=== PATIENT | male | born 1985 | race Caucasian/White ===

== ENCOUNTER 2022-01-25 19:12 | Emergency (ER) | payer OTHER, SELFPAY ==
[2022-01-25 19:22] VITALS: BP 123/77; PULSE 115; RESP 18; TEMP 38.2; O2SAT 95
[2022-01-25 19:30] VITALS: PULSE 96
--- NOTE | 2022-01-25 19:43 | ED.URI ---
HPI - URI/Sore Throat General Chief Complaint: Upper Respiratory Infection Stated Complaint: Fever/Nausea/Diarrhea/Cough Time Seen by Provider: 01/25/22 19:43 Source: patient Mode of arrival: ambulatory Limitations: no limitations History of Present Illness HPI Narrative: 36-year-old male presents with complaint of congestion, cough, fatigue, low-grade fever, diarrhea and nausea. Symptoms for 4 to 5 days. Has missed several days of work and needs work note. Taking Tylenol and ibuprofen to treat symptoms. Drinking Pedialyte to prevent dehydration. All systems reviewed and negative except as noted above. Related Data Home Medications Medication Instructions Recorded Confirmed No Home Medications 01/25/22 01/25/22 Allergies Allergy/AdvReac Type Severity Reaction Status Date / Time No Known Allergies Allergy Unknown Unverified 01/25/22 19:56 Review of Systems Review of Systems: CONSTITUTIONAL: Denies fever, chills, or sweats. EYES: Denies visual changes, redness, or discharge. ENT: Reports rhinorrhea, congestion. Denies sore throat, or otalgia. CARDIOVASCULAR: Denies chest pain, palpitations, or edema. RESPIRATORY: Reports cough. Denies dyspnea. GASTROINTESTINAL: Denies abdominal pain, nausea, vomiting, or diarrhea. GENITOURINARY: Denies dysuria or hematuria. SKIN: Denies rash or itching. MUSCULOSKELETAL: Denies back pain, joint pain. Reports myalgia. NEUROLOGIC: Denies headache, numbness, or weakness. PSYCHIATRIC: Denies anxiety or depression. All other systems reviewed are negative, except as documented in HPI. PMFSH Comments Reviewed Exam Narrative: GENERAL: This is a well-nourished, well-developed patient, in no apparent distress. HEAD: normocephalic, atraumatic. EYES: PERRL. Sclera clear/white. Vision is grossly intact. EARS: External ears normal, auditory canals clear and without drainage, TMs normal without perforation. Hearing grossly intact. NOSE: External nose normal with clear nasal drainage, moderate congestion. THROAT: Mucous membranes moist, erythema to posterior pharynx with clear nasal drainage. NECK: Neck supple, non-tender without lymphadenopathy, masses or thyromegaly. CARDIOVASCULAR: Regular rate and rhythm without murmurs, gallops, or rubs. RESPIRATORY: Clear to auscultation. Breath sounds equal bilaterally. No wheezes, rales, or rhonchi. SKIN: warm, Dry, intact with no suspicious lesions or rash, good texture and turgor. NEURO: awake, alert, and oriented to person, place and time. There were no obvious focal neurologic abnormalities. EXTREMITIES: Normal range of motion. Course Course Level of Care: Express Care Visit Vital Signs Vital signs: Vital Signs Temperature 38.2 C H 01/25/22 19:22 Pulse Rate 115 H 01/25/22 19:22 Respiratory Rate 18 01/25/22 19:22 Blood Pressure 123/77 01/25/22 19:22 Pulse Oximetry 95 01/25/22 19:22 Temperature 38.2 C H 01/25/22 19:22 Pulse Rate 115 H 01/25/22 19:22 Respiratory Rate 18 01/25/22 19:22 Blood Pressure 123/77 01/25/22 19:22 Pulse Oximetry 95 01/25/22 19:22 MDM - URI/Sore Throat MDM Narrative Medical decision making narrative: Patient is aware of diagnosis, understands and agrees to treatment plan. Anticipatory guidance given. Patient agrees to follow-up as directed and is aware of reasons to seek care at the emergency department. Portions of this record may have been created with voice recognition software Differential Diagnosis Differential diagnosis: Likely upper respiratory infection, sinusitis, viral infection, influenza and pharyngitis Discharge Plan Discharge Clinical Impression: Viral upper respiratory infection Patient Disposition: Home, Self-Care Condition: Stable Instructions: Antibiotic Form, Upper Respiratory Infection (ED) Additional Instructions: Your influenza and Covid test were negative today. Take an [id number] medication, such as DayQuil NyQuil cold and flu, as
== END 2022-01-25 20:05 | disposition home or self-care (01) ==
PROVIDERS: Emergency Provider Nurse Practitioner Family
DX: J06.9 Acute upper respiratory infection, unspecified (principal); Z20.822 Contact with and (suspected) exposure to COVID-19
CPT/HCPCS: 87426; 87804; 99213; C9803; G0463

== ENCOUNTER 2025-03-12 14:55 | Emergency (ER) | payer OTHER, SELFPAY ==
--- NOTE | ~2025-03-12 | XR_ITS ---
XR chest 2V Ordering provider: Joe Pinto MD History: 39 years Male with . SOB/Productive cough x5 days; worsening . Comparison: December 26, 2013 FINDINGS: MEDIASTINUM: The cardiac silhouette is not enlarged. LUNGS: No pneumothorax. Opacification in the left lung base suggestive of atelectasis versus pneumoni a. Minimal effusion is noted . Prominent markings in the right lung base. OTHER: No free air under the diaphragm. IMPRESSION: Left basilar atelectasis versus pneumonia. Left-sided trace of pleural effusion. The Reviewed, dictated and finalized at location A. IMPRESSION: Left basilar atelectasis versus pneumonia. Left-sided trace of pleural effusion . The
[2025-03-12 14:57] VITALS: BP 125/89; PULSE 97; RESP 18; TEMP 37.1; O2SAT 95
--- OUTSIDE RECORDS SUMMARY | 2025-03-12 14:57 | XMS_ITS | Clinical Summary ---
Author Organization [facility] [place] [address] [facility] Address [address] [place] [address] Care Team Providers Care Sales Effectiveness Manager Name Role Phone Unknown, Notinfile Primary Care Provider Unavail able Allergies No known active allergies Medications benzonatate (TESSALON) 100 mg capsuleIndicati ons:Cough Take 1 capsule (100 mg total) by mouth 3 (three) times a day as needed for cough 42 capsule 08/20/2024 Active Active Problems No known active problems Social History Tobacco Use Types Packs/Day Years Used Date Smoking Tobacco: Never Assessed Personal Safety Answer Date Recorded Getting School Help Needed Not on file 08/20 Sex and Gender Information Value Date Recorded Sex Assigned at Not on file 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 Gender Identity Not on file Sexual Orientation Not on file Last Filed Vital Signs Vital Sign Reading Time Taken Comments Blood Pressure 126/84 08/20/2024 8:41 AM CDT Pulse 85 08/20/2024 8:41 AM CDT Temperature 36.6 C (97.8 F) 08/20/2024 8:41 AM CDT Respiratory Rate 17 08/20/2024 8:41 AM CDT Oxygen Saturation 98% 08/20/2024 8:41 AM CDT Inhaled Oxygen Concentration - - Weight 88 kg (194 lb) 08/20/2024 8:41 AM CDT Height 175.3 cm (5' 9 ) 08/20/2024 8:41 AM CDT Body Mass Index 28.65 08/20/2024 8:41 AM CDT Plan of Treatment Health Maintenance Due Date Last Done Comments Depression Screening 1986 Hepatitis C Screening 1986 Varicella Vaccines (1 of 2 - 13+ 2-dose series) 1999 DTaP/Tdap/Td Vaccine (6 - Tdap) 08/29/2000 08/28/2000, 06/02/1991, 02/06/1988, Additional history exists Hepatitis B Screening 2004 Regular Well Visit/Exam 18-64 2004 Influenza Vaccine (#1) 2024 HPV Vaccines Aged Out No longer eligi ble based on patient's age to complete this topic Pneumococcal vaccine <65 Aged Out No longer eligible based on patient's age to complete this topic Insurance AETNA [facility] HMO Care Teams Sales Effectiveness Manager Relationship Specialty Start Date End Date Unknown, Notinfile PCP - General 08/20/24
--- OUTSIDE RECORDS SUMMARY | 2025-03-12 14:57 | XMS_ITS | Referral Summary ---
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
--- NOTE | 2025-03-12 15:03 | ED.URI ---
HPI - URI/Sore Throat General Chief Complaint: Upper Respiratory Infection Stated Complaint: congestion Time Seen by Provider: 03/12/25 15:03 Source: patient and family Mode of arrival: ambulatory Limitations: no limitations History of Present Illness HPI Narrative: Patient is a 39-year-old male with a headache and cough congestion and not feeling well for the past 4 days. He has been having fever and chills. He has sick contacts with his child. MD elicited complaint: fever and cough Pertinent past history: other ( None) Onset (ago): day(s) ( 4) Consistency: constant Severity: moderate Pain scale (0-10): 3 Description of mucous: clear, yellow and green Able to tolerate fluids by mouth: Yes Exacerbating factors: nothing Relieving factors: nothing Context: sick contacts Associated symptoms: fever, chills, headache and cough Treatments prior to arrival: acetaminophen and ibuprofen Related Data Allergies Allergy/AdvReac Type Severity Reaction Status Date / Time No Known Allergies Allergy Unknown Unverified 01/25/22 19:56 Review of Systems Review of Systems: All systems reviewed & are unremarkable except as noted in HPI and below Constitutional: Constitutional: Reports no additional constitutional complaints Eyes: Eyes: Reports no additional eye complaints ENT: Reports system reviewed and no additional complaints, except as documented Cardiovascular: Cardiovascular: Reports no additional cardiovascular complaints Respiratory: Respiratory: Reports no additional respiratory complaints Gastrointestinal: Gastrointestinal: Reports no additional gastrointestinal complaints Genitourinary: Genitourinary: Reports no additional male genitourinary complaints Musculoskeletal: Musculoskeletal: Reports no additional musculoskeletal complaints Integumentary/Breasts: Skin/Breast: Reports system reviewed and no additional complaints, except as docu Neurologic: Reports system reviewed and no additional complaints, except as documented Psychiatric: Psychiatric: Reports no additional psychiatric complaints Endocrine: Endocrine: Reports no additional endocrine complaints Hematologic/Lymphatic: Hematologic/Lymphatic: Reports no additional hematologic/lymphatic complaints Allergic/Immunologic: Allergic/Immunologic: Reports no additional allergic/immunologic complaints Exam Const: General: ill appearing Nutritional Appearance: well nourished Orientation/consciousness: patient oriented x3 Limitations: no limitations HENMT: Head: normal to inspection Ears: external ears normal Face/Nose/Sinus: Normal external nose present Eyes: Conjunctivae: conjunctivae normal Pupils: Equal, round and reactive pupils present EOM: EOMs intact bilaterally Neck: Neck: normal visual inspection Chest: Chest palpation & inspection: normal inspection of the chest Resp: Effort & Inspection: normal respiratory effort and not labored Auscultation: clear to auscultation bilaterally, crackles ( left lower lobe), no rales, no rhonchi, no wheezes, breath sounds present and diminished lung sounds Cardio: Rate: regular rate Rhythm: regular rhythm Heart sounds: no murmurs GI: Inspection: non-distended GI Palp: Yes Soft to palpation and No Tenderness to palpation present (GI) Auscultation: normal bowel sounds : General: Yes bladder normal to palpation Back/Spine/Pelvis: Back: no CVA tenderness Skin: General skin exam: normal color Rashes: no rashes Wounds: no wounds Neuro: General: patient oriented x3 Cranial nerves: Yes Nystagmus not present Speech: normal speech Gait exam (Neuro): Normal gait present Extrem: General: normal to inspection Psych: Mental Status: mental status grossly normal Affect: normal affect Attitude: cooperative Course Vital Signs Vital signs: Vital Signs Temperature 37.1 C 03/12/25 14:57 Pulse Rate 97 03/12/25 14:57 Respiratory Rate 18 03/12/25 14:57 Blood Pressure 125/89 03/12/25 14:57 Pulse Oximetry 95 03/12/25 14:57 Oxygen Delivery Room Air 03/12/25 14:57 Temperature 37.1 C 03/12/25 14:57 Pulse Rate 97 03/12/25 14:57 Respiratory Rate 18 03/12/25 14:57 Blood Pressure 125/89 03/12/25 14:57 Pulse Oximetry 95 03/12/25 14:57 Oxygen Delivery Room Air 03/12/25 14:57 MDM - URI/Sore Throat MDM Narrative Medical decision making narrative: patient is a 39-year-old male with cough and congestion and not feeling well for the past 4 days. We will do COVID swab testing and chest x-ray. Lab Data Attestation: I reviewed the patient's lab results. Labs: COVID swab shows influenza B positive Imaging Data Attestation: I personally reviewed and interpreted this imaging study as follows: Radiologist's impression: chest x-ray shows left lower lobe pneumonia /infiltrate Discharge Plan Discharge Clinical Impression: Influenza B Pneumonia Qualifiers: Pneumonia type: due to unspecified organism Laterality: left Lung location: lower lobe of lung Qualified Code(s): J18.9 - Pneumonia, unspecified organism Patient Disposition: Home Condition: Stable Instructions: Antibiotic Form, Influenza (ED), Bacterial Pneumonia (DC) Patient Language: Tamazight Prescriptions: New levofloxacin 500 mg tablet 500 mg PO DAILY 7 Days Qty: 7 0RF oseltamivir [Tamiflu] 75 mg capsule 75 mg PO BID 5 Days Qty: 10 0RF Follow-up/Referrals: Marquita,MADY Carranza [Primary Care Provider] - Time of Disposition: 16:24
--- NOTE | 2025-03-12 15:22 | PC.NURSE ---
covid culture sent to lab
--- OUTSIDE RECORDS SUMMARY | 2025-03-12 15:49 | XMS_ITS | Clinical Summary ---
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
--- OUTSIDE RECORDS SUMMARY | 2025-03-12 15:49 | XMS_ITS | Referral Summary ---
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
[2025-03-12 15:57] VITALS: O2SAT 100
[2025-03-12 16:00] LABS: Influenza A QL RT-PCR Negative (Negative); Influenza B QL RT-PCR Positive (Negative); RSV RNA, RT-PCR Negative (Negative); SARS-CoV-2 RNA PCR Negative (Negative)
[2025-03-12 16:36] VITALS: BP 116/81; PULSE 58; RESP 16; TEMP 38.7; O2SAT 96
== END 2025-03-12 16:46 | disposition home or self-care (01) ==
PROVIDERS: Emergency Provider Emergency Medicine; PCP Physician Assistant
DX: J10.1 Influenza due to other identified influenza virus with other respiratory manifestations (principal); J18.9 Pneumonia, unspecified organism; Z20.822 Contact with and (suspected) exposure to COVID-19
CPT/HCPCS: 71046; 87637; 99283

== ENCOUNTER 2025-08-19 16:50 | Emergency (ER) | payer OTHER, SELFPAY ==
--- NOTE | ~2025-08-19 | XR_ITS ---
EXAMINATION: XR wrist RT min 3V, 08/19/2025 17:30 CDT HISTORY: fall from ladder COMPARISON: No comparisons available. Findings: No acute fracture or malalignment. No significant degenerative changes. Soft tissues unremarkable. Impression: No acute fracture or malalignment. Reviewed, dictated and finalized at location P. Impression: No acute fracture or malalignment.
--- NOTE | ~2025-08-19 | CT_ITS ---
EXAMINATION: CT cervical spine wo con COMPARISON: None HISTORY: fall from ladder TECHNIQUE: Axial images were obtained through the spine without IV contrast. Coronal, sagittal reconstruction images were obtained from the axial views. CT scan performed using dose optimization techniques including the following automated exposure control; adjustment of mA and/or kV; use of iterative reconstruction technique. Automatic exposure control was used to reduce radiation dose. Permanent radiation dose record is archived to PACS. FINDINGS: The vertebral heights are intact. No fracture or subluxation. The disc heights are intact. Soft tissues unremarkable. Impression: No acute abnormality. Reviewed, dictated and finalized at location P. Impression: No acute abnormality.
--- NOTE | ~2025-08-19 | CT_ITS ---
CT brain wo con HISTORY:fall from ladder COMPARISON: None. TECHNIQUE: Axial images were obtained of the head without intravenous contrast. FINDINGS: No acute intracranial hemorrhage, mass effect or midline shift. No extra-axial fluid collections. The calvarium is intact. Visualized paranasal sinuses and mastoid air cells are clear. IMPRESSION: No acute intracranial hemorrhage or extra axial fluid collections. All CT scans at this facility are performed using low dose modulation techniques as appropriate to perform exam including the following: automated exposure control; use of iterative reconstruction technique; adjustment of the mA and/or kV according to patient size (this includes techniques or standardized protocols for targeted exams where dose is matched to indication/reason for exam). Reviewed, dictated and finalized at location S. IMPRESSION: No acute intracranial hemorrhage or extra axial fluid collections. All CT scans at this facility are performed using low dose modulation techniqu es as appropriate to perform exam including the following: automated exposure c ontrol; use of iterative reconstruction technique; adjustment of the mA and/or kV according to patient size (this includes techniques or standardized protocol s for targeted exams where dose is matched to indication/reason for exam).
--- NOTE | ~2025-08-19 | CT_ITS ---
CT FACIAL BONES WITHOUT CONTRAST INDICATION: Facial trauma, fall COMPARISON: None. TECHNIQUE: Axial 2.5 mm images of the maxillofacial bones/sinuses were obtained without contrast. Additional axial, coronal and sagittal reformatted images were rendered. FINDINGS: No facial bone fracture is identified. The sinuses are clear. Nasal septum is deviated to the left. No soft tissue swelling or foreign body is noted. On reformatted images, there is no orbital floor fracture. The temporomandibular joint alignment is maintained. IMPRESSION: Normal CT of the face without contrast. All CT scans at this facility are performed using low dose modulation techniques as appropriate to perform exam including the following: automated exposure control; use of iterative reconstruction technique; adjustment of the mA and/or kV according to patient size (this includes techniques or standardized protocols for targeted exams where dose is matched to indication/reason for exam). Reviewed, dictated and finalized at location S. IMPRESSION: Normal CT of the face without contrast. All CT scans at this facility are performed using low dose modulation techniqu es as appropriate to perform exam including the following: automated exposure c ontrol; use of iterative reconstruction technique; adjustment of the mA and/or kV according to patient size (this includes techniques or standardized protocol s for targeted exams where dose is matched to indication/reason for exam).
[2025-08-19 16:52] VITALS: BP 144/106; PULSE 107; RESP 16; TEMP 36.8; O2SAT 99
--- NOTE | 2025-08-19 17:44 | ED_ITS ---
HPI - Fall General Chief Complaint: Fall Stated Complaint: wrist pain from fall off ladder Time Seen by Provider: 08/19/25 17:08 Source: patient Mode of arrival: ambulatory Limitations: no limitations History of Present Illness HPI Narrative: Patient is a 40-year-old male who was working on a ladder and took a fall from 8 ft above ground. He fell off the ladder in onto the ground injuring his head and neck and face and his right wrist. No syncope. This was an accident. MD complaint: fall Onset (ago): hour(s) (One) Fall from: from height (distance) (8 feet) Fall witnessed: yes, by bystander Place fall occurred: work Loss of consciousness: none Prolonged down time: no Symptoms prior to fall: none Context: tripped/slipped Location of injury: head, face, neck and other (Right wrist) Severity: moderate Severity scale (1-10): 4 Quality: sharp Associated symptoms (after fall): denies Related Data Allergies Allergy/AdvReac Type Severity Reaction Status Date / Time No Known Allergies Allergy Unknown Unverified 01/25/22 19:56 Review of Systems Review of Systems: All systems reviewed & are unremarkable except as noted in HPI and below Constitutional: Constitutional: Reports no additional constitutional complaints Eyes: Eyes: Reports no additional eye complaints ENT: Reports system reviewed and no additional complaints, except as documented Cardiovascular: Cardiovascular: Reports no additional cardiovascular complaints Respiratory: Respiratory: Reports no additional respiratory complaints Gastrointestinal: Gastrointestinal: Reports no additional gastrointestinal complaints Genitourinary: Genitourinary: Reports no additional male genitourinary complaints Musculoskeletal: Musculoskeletal: Reports no additional musculoskeletal complaints Integumentary/Breasts: Skin/Breast: Reports system reviewed and no additional complaints, except as docu Neurologic: Reports system reviewed and no additional complaints, except as documented Psychiatric: Psychiatric: Reports no additional psychiatric complaints Endocrine: Endocrine: Reports no additional endocrine complaints Hematologic/Lymphatic: Hematologic/Lymphatic: Reports no additional hematologic/lymphatic complaints Allergic/Immunologic: Allergic/Immunologic: Reports no additional allergic/immunologic complaints Exam Const: General: healthy appearing, no acute distress and alert Nutritional Appearance: well nourished Orientation/consciousness: patient oriented x3 Limitations: no limitations HENMT: Head: normal to inspection Ears: external ears normal Face/Nose/Sinus: Normal external nose present Face and sinus: normal facial exam Mouth: Yes Normal oral and palatal mucosa present Teeth and gingiva: dentition normal Throat: posterior oropharynx normal Eyes: Conjunctivae: conjunctivae normal Pupils: Equal, round and reactive pupils present EOM: EOMs intact bilaterally Neck: Neck: normal visual inspection Chest: Chest palpation & inspection: normal inspection of the chest Resp: Effort & Inspection: normal respiratory effort and not labored Auscultation: clear to auscultation bilaterally and no crackles Cardio: Rate: regular rate Rhythm: regular rhythm Heart sounds: no murmurs GI: Inspection: non-distended GI Palp: Yes Soft to palpation and No Tenderness to palpation present (GI) Auscultation: normal bowel sounds : General: Yes bladder normal to palpation Back/Spine/Pelvis: Back: no CVA tenderness Skin: General skin exam: normal color Rashes: no rashes Wounds: no wounds Neuro: General: patient oriented x3, moves all extremities, no meningeal signs, no focal motor deficits and CN's II-XI intact bilaterally Cranial nerves: Yes Nystagmus not present Speech: normal speech Gait exam (Neuro): Normal gait present Other: Fast exam negative, NIH is 0, GCS is 15 Extrem: General: normal to inspection Other: Tender right wrist to palpation without deformity Psych: Mental Status: mental status grossly normal Affect: normal affect Attitude: cooperative Course Vital Signs Vital signs: Vital Signs Temperature 36.8 C 08/19/25 16:52 Pulse Rate 107 H 08/19/25 16:52 Respiratory Rate 16 08/19/25 16:52 Blood Pressure 144/106 H 08/19/25 16:52 Pulse Oximetry 99 08/19/25 16:52 Oxygen Delivery Room Air 08/19/25 16:52 Temperature 36.8 C 08/19/25 16:52 Pulse Rate 107 H 08/19/25 16:52 Respiratory Rate 16 08/19/25 16:52 Blood Pressure 144/106 H 08/19/25 16:52 Pulse Oximetry 99 08/19/25 16:52 Oxygen Delivery Room Air 08/19/25 16:52 MDM - Fall MDM Narrative Medical decision making narrative: Patient is a 40-year-old male with a fall from 8 ft off a ladder accidentally prior to arrival. CT scans. X-ray. Patient did not want pain management at this time. Imaging Data Attestation: I personally reviewed and interpreted this imaging study as follows: Radiologist's impression: CT scan of the head is negative for acute process CT scan of the cervical spine is negative for acute process CT scan of the facial bones is negative for acute process X-ray right wrist is negative for acute process Discharge Plan Discharge Clinical Impression: Fall from ladder Qualifiers: Encounter type: initial encounter Qualified Code(s): W11.XXXA - Fall on and from ladder, initial encounter Contusion of right wrist Qualifiers: Encounter type: initial encounter Qualified Code(s): S60.211A - Contusion of right wrist, initial encounter Head injury Qualifiers: Encounter type: initial encounter Qualified Code(s): S09.90XA - Unspecified injury of head, initial encounter Patient Disposition: Home Condition: Stable Instructions: Antibiotic Form, Head Injury (ED) Patient Language: Tamazight Prescriptions: New tramadol 50 mg tablet 50 mg PO Q8H PRN (Reason: pain) Qty: 20 0RF Rx Instructions: 1-2 tabs per dose No Action levofloxacin 500 mg tablet 500 mg PO DAILY 7 Days Qty: 7 0RF oseltamivir [Tamiflu] 75 mg capsule 75 mg PO BID 5 Days Qty: 10 0RF Follow-up/Referrals: Marquita,MADY Carranza [Primary Care Provider] Stand Alone Forms: Work/School Release IP Time of Disposition: 18:56
--- OUTSIDE RECORDS SUMMARY | 2025-08-19 17:56 | XMS_ITS | Data Portability ---
[facility] Address [address] [place] [address] Care Team Providers Care Quality And Reliability Engineer Name Role Phone ARNALDO JUÁREZ Primary Care Provider Assessment No assessment recorded. Plan of Treatment Reminders Order Date Submit Date Provider Last Modified By Organization Details Last Modified Time Details Appointments None recorded. Lab celiac disease serology panel, serum 2024 025 [facility], [address] [facility] [address], [place], [address], 5 15:12:34 CBC 2024 025 [facility], [address] [facility], [facility], [place], [address], 5 15:12:39 CMP, serum or plasma 2024 025 [facility], [address] [place] [address] 2, [place], [address], 5 15:12:37 lipid panel, serum 2024 025 [facility], [address] [facility], [facility], [place], [address], 5 15:12:36 HbA1c (hemoglobi n A1c), blood 2024 025 RUY In-Office Order, Internal Use Only DO Not Attach Compendium DO Not Attach Compendium, Do Not Delete/merge, [id number] 5 10:58:13 testostero ne, free + total, serum 2024 025 [facility], [address] [facility] [address], [place], [address], 15:12:33 Referral None recorded. Procedures None recorded. Surgeries None recorded. Imaging None recorded. Medication Orders None recorded. Patient TargetsNo targets recorded. Patient Instructions Encounter Date Encounter Id Patient Instructions Last Modified By Organization Details Last Modified Time 01/20/2025 [id number] A healthy lifestyle: care instructions [email or web address] Not available 01/20/2025 10:41:28 learning about high blood pressure jnanney Not available 01/20/2025 10:41:28 Reason for Referral None Reported. Results Created Date Observation Date Name Description Value Unit Range Abnormal Flag Note LastModifiedBy Organization Detail LastModifiedTime 01/21/2001/21/2025 TESTO STERO NE,FR EE AND TOTAL testosterone 461 NG/dL 264-91 6 Adult male refer ence inter eleni is based on a popul ation of healt hy nonob courtney males (BMI <30) betwe en 19 and 39 years old. Julia bishop, et.al . JCEM 2017, 102;1 161-1 173. PMID: 10502 103. Not Available [facility] & [address], [address], 01/28/2025 15:12:33 01/21/20 25 01/28/2025 TESTO STERO NE,FR EE AND TOTAL free testosterone (direct) 9.5 pg/mL 8.7-25 .1 Not Available [address], [address], 01/28/2025 15:12:33 01/21/20 25 01/21/2025 ISRA [place] DISEA SE PANEL endomysial antibody IgA NEGATI VE negati ve Not Available [address], [address], 01/28/2025 15:12:34 03/19/01/21/2025 ISRA C DISEA SE PANEL T-transgluta minase (ttg) IgA <2 U/mL 0-3 Negat ray 0 - 3 Weak Posit ray 4 - 10 Posit ray >10 Tissu e Trans gluta javier e (tTG) has been ident ified as the endom ysial antig en. Studi es have demon str- ated that endom ysial IgA antib odies have over 99% speci ficit y for glute n sensi tive enter opath y. Not Available [address], [address], 01/28/2025 15:12:34 01/21/20 25 01/21/2025 ISRA C DISEA SE PANEL immunoglobul in A, qn, serum 164 mg/dL 90-386 Not Available [address], [address], 01/28/2025 15:12:34 01/21/20 25 01/21/2025 LIPID PANEL cholesterol, total 142 mg/dL 100-19 9 Not Available [address], [address], 01/28/2025 15:12:35 01/21/20 25 01/21/2025 LIPID PANEL triglyceride s 53 mg/dL 0-149 Not Available [address], [address], 01/28/2025 15:12:35 01/21/20 25 01/21/2025 LIPID PANEL HDL cholesterol 58 mg/dL >39 Not Available [facility] [address], [address], 01/28/2025 15:12:35 01/21/20 25 01/21/2025 LIPID PANEL VLDL cholesterol anusha 11 mg/dL 5-40 Not Available [address], [address], 01/28/2025 15:12:35 01/21/20 25 01/21/2025 LIPID PANEL LDL chol calc (rust) 73 mg/dL 0-99 Not Available [address], [address], 01/28/2025 15:12:35 01/21/20 25 01/21/2025 COMP. METAB OLIC PANEL (14) glucose 87 mg/dL 70-99 Not Available [address], [address], 01/28/2025 15:12:37 01/21/20 25 01/21/2025 COMP. METAB OLIC PANEL (14) BUN 18 mg/dL 6-20 Not Available [address], [address], 01/28/2025 15:12:37 01/21/20 25 01/21/2025 COMP. METAB OLIC PANEL (14) creatinine 0.98 mg/dL 0.76-1 .27 Not Available [address], [address], 01/28/2025 15:12:37 01/21/20 25 01/21/2025 COMP. METAB OLIC PANEL (14) eGFR 101 mL/mi n/1.7 3 >59 Not Available [address], [address], 01/28/2025 15:12:37 01/21/20 25 01/21/2025 COMP. METAB OLIC PANEL (14) BUN/creatini ne ratio 18 9-20 Not Available [address], [address], 01/28/2025 15:12:37 01/21/20 25 01/21/2025 COMP. METAB OLIC PANEL (14) sodium 141 mmol/ L 134-14 4 Not Available [address], [address], 01/28/2025 15:12:37 01/21/20 25 01/21/2025 COMP. METAB OLIC PANEL (14) potassium 4.9 mmol/ L 3.5-5. 2 Not Available [address], [address], 01/28/2025 15:12:37 01/21/20 25 01/21/2025 COMP. METAB OLIC PANEL (14) chloride 105 mmol/ L 96-106 Not Available [address], [address], 01/28/2025 15:12:37 01/21/20 25 01/21/2025 COMP. METAB OLIC PANEL (14) carbon dioxide, total 21 mmol/ L 20-29 Not Available [address], [address], 01/28/2025 15:12:37 01/21/20 25 01/21/2025 COMP. METAB OLIC PANEL (14) calcium 9.8 mg/dL 8.7-10 .2 Not Available [address], [address], 01/28/2025 15:12:37 01/21/20 25 01/21/2025 COMP. METAB OLIC PANEL (14) protein, total 6.9 g/dL 6.0-8. 5 Not Available [address], [address], 01/28/2025 15:12:37 01/21/20 25 01/21/2025 COMP. METAB OLIC PANEL (14) albumin 4.7 g/dL 4.1-5. 1 Not Available [address], [address], 01/28/2025 15:12:37 01/21/20 25 01/21/2025 COMP. METAB OLIC PANEL (14) globulin, total 2.2 g/dL 1.5-4. 5 Not Available [address], [address], 01/28/2025 15:12:37 01/21/20 25 01/21/2025 COMP. METAB OLIC PANEL (14) bilirubin, total 0.5 mg/dL 0.0-1. 2 Not Available [address], [address], 01/28/2025 15:12:37 01/21/20 25 01/21/2025 COMP. METAB OLIC PANEL (14) alkaline phosphatase 54 IU/L 44-121 Not Available [address], [address], 01/28/2025 15:12:37 01/21/20 25 01/21/2025 COMP. METAB OLIC PANEL (14) AST (SGOT) 15 IU/L 0-40 Not Available [address], [address], 01/28/2025 15:12:37 01/21/20 25 01/21/2025 COMP. METAB OLIC PANEL (14) ALT (SGPT) 29 IU/L 0-44 Not Available [address], [address], 01/28/2025 15:12:37 01/21/20 25 01/21/2025 CARDI OVASC ULAR REPOR T interpretati on Note Suppl ela le is avail able. Not Available [address], [address], 01/28/2025 15:12:38 01/21/20 25 01/21/2025 CARDI OVASC ULAR REPOR T pdf . Not Available [facility] & [address], [address], 01/28/2025 15:12:38 01/21/20 25 01/21/2025 CBC, PLATE LET, NO DIFFE RENTI AL WBC 5.9 x10e3 /uL 3.4-10 .8 Not Available [address], [address], 01/28/2025 15:12:39 01/21/20 25 01/21/2025 CBC, PLATE LET, NO DIFFE RENTI AL RBC 5.36 x10e6 /uL 4.14-5 .80 Not Available [address], [address], 01/28/2025 15:12:39 01/21/20 25 01/21/2025 CBC, PLATE LET, NO DIFFE RENTI AL hemoglobin 15.8 g/dL 13.0-1 7.7 Not Available [address], [address], 01/28/2025 15:12:39 01/21/20 25 01/21/2025 CBC, PLATE LET, NO DIFFE RENTI AL hematocrit 47.1 % 37.5-5 1.0 Not Available [address], [address], 01/28/2025 15:12:39 01/21/20 25 01/21/2025 CBC, PLATE LET, NO DIFFE RENTI AL MCV 88 fL 79-97 Not Available [facility] & [address], [address], 01/28/2025 15:12:39 01/21/20 25 01/21/2025 CBC, PLATE LET, NO DIFFE RENTI AL MCH 29.5 pg 26.6-3 3.0 Not Available [address], [address], 01/28/2025 15:12:39 01/21/20 25 01/21/2025 CBC, PLATE LET, NO DIFFE RENTI AL MCHC 33.5 g/dL 31.5-3 5.7 Not Available [address], [address], 01/28/2025 15:12:39 01/21/20 25 01/21/2025 CBC, PLATE LET, NO DIFFE RENTI AL RDW 12.3 % 11.6-1 5.4 Not Available [address], [address], 01/28/2025 15:12:39 01/21/20 25 01/21/2025 CBC, PLATE LET, NO DIFFE RENTI AL platelets 219 x10e3 /uL 150-45 0 Not Available [address], [address], 01/28/2025 15:12:39 01/21/20 25 01/20/2025 HbA1c (hemo globi n A1c), blood HbA1c 5.1 Not Available In-Office Order Internal Use Only DO Not Attach Compendium DO Not Attach Compendium, Do Not Delete/merge, [id number] 01/20/2025 10:29:34 03/12/20 25 03/12/2025 XR, chest , 2 view [facility] observ [facility] [address] [place], [address], 03/15/2025 09:31:52 08/19/20 25 08/19/2025 imagi ng/di agnos tic resul t No observ ation record ed. [facility] [address] [place], [address], 08/19/2025 18:55:34 Result Notes None recorded. Medical Equipment None Reported. Allergies No known drug allergies Medications Name Sig Start Date Stop Date Status Note LastModified by Organization Details LastModified Time doxycycline hyclate 100 mg capsule TAKE 1 CAPSULE BY MOUTH TWICE A DAY FOR 7 DAYS 01/20 completed Not Available Not Available Not Available benzonatate 100 mg capsule TAKE 1 CAPSULE BY MOUTH THREE TIMES A DAY NEEDED FOR COUGH 01/20 completed Not Available Not Available Not Available Vitals Date Recorded Body weight Body mass index (BMI) Body height Oxygen saturation Oxygen saturation in Arterial blood by Pulse oximetry Heart rate Systolic And Diastolic Provider Name and Address Organization Details Last Updated DateTime 71959.1 4 g 28.2 kg/m2 175.26 cm 97 % 97 % 80 /min 128/96 mm[Hg] Sobeida Silva [place] [facility] 10:08:52 Social History Question Answer Notes LastModified by [employer] Details LastModified Time Tobacco Smoking Status Never Smoker Sobeida Silva MA null, [place] - [facility] 01/20/2025 10:05:55 What Is Your Level Of Caffeine Consumption? Moderate Information not available 01/20/2025 What Type Of Diet Are You Following? REGULAR Information not available 01/20/2025 What Was The Date Of Your Most Recent Tobacco Screening? 01/20/2025 Information not available 01/20/2025 What Is Your Relationship Status? Information not available 01/20/2025 Do You Have Smoke And Carbon Monoxide Detectors In Your Home? Yes Information not available 01/20/2025 Are You Passively Exposed To Smoke? No Information no t available 01/20/2025 Has Tobacco Cessation Counseling Been Provided? No Information not available 01/20/2025 Sex: Unknown Functional Status Question Answer Note LastModified by [employer] Details LastModified Time Do you use any illicit or recreational drugs? No Information not available 01/20/2025 Do you or have you ever used any other forms of tobacco or nicotine? No Information not available 01/20/2025 What is your level of alcohol consumption? Occasional Information not available 01/20/2025 Are you currently employed? 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 [id number] Information not available 01/20/2025 Family History Relationship Description Onset Age of this Age Resolved Age Notes LastModified by Organization Details LastModified Time Father No current problems or disability [email or web address] Not available 01/20 10:05:23 Mother No current problems or disability [email or web address] Not available 01/20 10:05:23 Medical History Condition Response Coronary Artery Disease N Other N High Blood Pressure N Atrial Fibrillation N Thyroid Problems N Kidney or Bladder Problems N GI Problems N Depression N COPD N Blood Clots N Have you had a mammogram in the last yea r? N Skin Problems N Eating Disorder N Anemia N Heart Attack (RI) N Anxiety Disorder N Diabetes N Muscle, Joint, or Bone Problems N Arthritis N Seizures/Epilepsy N Have you had a colonoscopy in the last 1 0 years? N Acid Reflux (GERD) N Cancer N Stroke N Asthma N Allergies N Have you had a PSA blood test in the las t year? N ADHD N Substance Abuse N High Cholesterol N Hepatitis N Liver Disease N Schizophrenia N Headaches N Heart Failure N Osteoporosis N Immunizations Vaccine Type Date Status Note Provider Nam e and Address Organization Details Recorded Time MMR 8 completed RADHA [place], [place] - [facility] 01/20/2025 10:04:59 MMR 1 completed Sobeida [place], [place] [facility] 01/20/2025 10:04:59 meningococcal MPSV4 4 completed Sobeida [place] [facility] 01/20/2025 10:04:59 DTP 7 RADHA [place] [facility] 01/20/2025 10:04:59 DTP 8 RAD[place] [facility] 01/20/2025 10:04:59 DTP 1 completed RAD[place] [facility] 01/20/2025 10:04:59 DTP 6 completed Sobeidaaimee Silva RAD[place] [facility] 01/20/2025 10:04:59 DTP 6 completed Sobeida [place] [facility] 01/20/2025 10:04:59 OPV, trivalent 7 completed Sobeida [place] [facility] 01/20/2025 10:04:59 OPV, trivalent 8 completed Sobeida Ricardo RAD[place] [facility] 01/20/2025 10:04:59 OPV, trivalent 1 completed Sobeida Silva [place] [facility] 01/20/2025 10:04:59 OPV, trivalent 6 completed Sobeida [place] [facility] 01/20/2025 10:04:59 OPV, trivalent 6 completed Sobeida Silva [place] [facility] 01/20/2025 10:04:59 Td (adult), 2 Lf tetanus toxoid, preservative free, adsorbed 0 completed Sobeida Silva RAD[place] [facility] 01/20/2025 10:04:59 Past Encounters Encounter ID Performer Location Encounter Start Date Encounter Closed Date Diagnosis/Indication Diagnosis SNOMED-CT Code Diagnosis ICD10 Code Diagnosis IMO Codes Diagnosis Note [id number] Grant Shah MD [facility] [address] [place] [place] [address] 01/20/2025 09:55:40 01/26/2025 09:25:42 Essential hypertension 22980493 I10 Overweight 735930969 E66 .3 Gluten intolerance 84876 78804 K90.41 Fatigue 48447709 R53.83 Health Concerns Section Related Observation LastModified by Organization Jamar sevilla LastModified Time None Recorded Concern Status LastModified by Organization Details LastModified Time None Recorded Advance Directives Directive None Recorded Payers Insurance Date Sequence Insurance Name Policy Number Policy Mistry Covered Member ID Mistry Member ID Guarantor Name 01/26/2025 1 [employer] (POS II) [id number] Andrew Borja [id number] 1 Andrew Borja Notes Date Note Type Note Provider Name and Address Organization Details Recorded Time 01/20/2025 text/html ROS as noted in the HPI establish..no complaints...hx of elevated blood pressure...work s at [employer]...has possible gluten intolerance...f christos Juárez PA-C Attn: Accounting,[address] [place], [address], [facility] - [place] 01/20/2025 10:45:29
--- OUTSIDE RECORDS SUMMARY | 2025-08-19 17:56 | XMS_ITS | Clinical Summary ---
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 Gender Identity Not on file Sexual Orientation [...] 8:41 AM CDT Height 175.3 cm (5' 9) 08/20/2024 8:41 AM CDT Body Mass Index 28.65 08/20/2024 8:41 AM CDT Plan of Treatment Health Maintenance Due Date Last Done Comments Depression Screening 1986 Hepatitis C Screening 1986 Varicella Vaccines (1 of 2 - 13+ 2-dose series) 1999 DTaP/Tdap/Td Vaccine (6 - Tdap) 08/29/2000 08/28/2000, 06/02/1991, 02/06/1988, Additional history exists Hepatitis B Screening 2004 Regular Well Visit/Exam 18-64 2004 HPV Vaccines (1 - 3-dose SCDM series) 2013 Influenza Vaccine (#1) 2025 Pneumococcal vaccine <65 Aged Out No longer eligible based on patient's age to complete this topic Insurance [employer] [facility] HMO Care Teams Lens Grinder And Polisher Relationship Specialty Start Date End Date Unknown, Notinfile PCP - General 08/20/24
[2025-08-19 19:02] VITALS: PULSE 100; RESP 18; O2SAT 98
== END 2025-08-19 19:00 | disposition home or self-care (01) ==
PROVIDERS: Emergency Provider Emergency Medicine; PCP Physician Assistant
DX: S60.211A Contusion of right wrist, initial encounter (principal); S09.90XA Unspecified injury of head, initial encounter; W11.XXXA Fall on and from ladder, initial encounter
CPT/HCPCS: 70450; 70486; 72125; 73110; 99284